=== PATIENT | female | born 1945 | race Caucasian/White ===

== ENCOUNTER → 2020-03-10 10:54 | Outpatient (BNVA) | payer MEDICARE, OTHER, SELFPAY | PROVIDERS: PCP Internal Medicine; Visit Provider Hospitalist | DX: J45.909 Unspecified asthma, uncomplicated (principal); G47.33 Obstructive sleep apnea (adult) (pediatric); R05 Cough; Z99.89 Dependence on other enabling machines and devices | CPT/HCPCS: 99214 ==

== ENCOUNTER → 2020-09-04 11:10 | Outpatient (BNVA) | payer MEDICARE, OTHER, SELFPAY | PROVIDERS: PCP Internal Medicine; Visit Provider Hospitalist | DX: G47.33 Obstructive sleep apnea (adult) (pediatric) (principal); R05 Cough; J45.40 Moderate persistent asthma, uncomplicated; Z99.89 Dependence on other enabling machines and devices | CPT/HCPCS: 99212 ==

== ENCOUNTER → 2021-08-03 11:17 | Outpatient (BNVA) | payer MEDICARE, OTHER, SELFPAY | PROVIDERS: PCP Nurse Practitioner Gerontology; Visit Provider Hospitalist | DX: G47.33 Obstructive sleep apnea (adult) (pediatric) (principal); J45.40 Moderate persistent asthma, uncomplicated; R05.9 Cough, unspecified; Z99.89 Dependence on other enabling machines and devices | CPT/HCPCS: 99212 ==

== ENCOUNTER 2021-09-01 09:42 | Outpatient (REF) | payer MEDICARE, OTHER, SELFPAY ==
--- NOTE | 2021-09-01 | PFT_ITS ---
FLOWS: FEV1 81% of predicted at 1.69 L. FVC 71% of predicted at 1.99 L. FEV1 to FVC ratio of 0.85. No bronchodilator response. LUNG VOLUMES: Total lung capacity 66% of predicted at 3.37 L. Residual volume 55% of predicted at 1.29 L. Slow vital capacity 76% of predicted at 2.09 L. Expiratory reserve volume 30% of predicted at 0.18 L. Diffusion capacity is mildly decreased, diffusion capacity corrects to normal after adjustment for alveolar ventilation. IMPRESSION: Mild restrictive ventilatory defect with no bronchodilator response. Decreased expiratory reserve volume suggests extrathoracic restriction, likely secondary to abdominal obesity. Hipolito Mckeon MD AP/MODL / [id number]
== END 2021-09-01 09:43 | disposition home or self-care (01) ==
LOC: HO.RESP 09:42
PROVIDERS: PCP Nurse Practitioner Gerontology; Visit Provider Hospitalist
DX: R06.00 Dyspnea, unspecified (principal); R05.9 Cough, unspecified; J45.40 Moderate persistent asthma, uncomplicated; J98.4 Other disorders of lung; G47.33 Obstructive sleep apnea (adult) (pediatric); Z99.89 Dependence on other enabling machines and devices
CPT/HCPCS: 94060; 94727; 94729; 99212

== ENCOUNTER → 2021-12-02 11:08 | Outpatient (BNVA) | payer MEDICARE, OTHER, SELFPAY | PROVIDERS: PCP Nurse Practitioner Gerontology; Visit Provider Hospitalist | DX: J45.40 Moderate persistent asthma, uncomplicated (principal); J98.4 Other disorders of lung; G47.33 Obstructive sleep apnea (adult) (pediatric); Z99.89 Dependence on other enabling machines and devices; Z79.899 Other long term (current) drug therapy | CPT/HCPCS: 99212 ==

== ENCOUNTER → 2022-03-03 10:44 | Outpatient (BNVA) | payer MEDICARE, OTHER, SELFPAY | PROVIDERS: PCP Nurse Practitioner Gerontology; Visit Provider Hospitalist | DX: G47.33 Obstructive sleep apnea (adult) (pediatric) (principal); J45.40 Moderate persistent asthma, uncomplicated; J98.4 Other disorders of lung; R01.1 Cardiac murmur, unspecified; Z99.89 Dependence on other enabling machines and devices | CPT/HCPCS: 99212 ==

== ENCOUNTER → 2022-09-15 10:57 | Outpatient (BNVA) | payer MEDICARE, OTHER, SELFPAY | PROVIDERS: PCP Nurse Practitioner Gerontology; Visit Provider Hospitalist | DX: J45.41 Moderate persistent asthma with (acute) exacerbation (principal); J98.4 Other disorders of lung; R05.9 Cough, unspecified; R06.00 Dyspnea, unspecified; G47.33 Obstructive sleep apnea (adult) (pediatric); Z99.89 Dependence on other enabling machines and devices | CPT/HCPCS: 99212 ==

== ENCOUNTER 2022-12-22 11:13 | Outpatient (AMB) | payer MEDICARE, OTHER, SELFPAY ==
--- NOTE | 2022-12-22 11:14 | MHC.OFFVIS ---
Intake Vital Signs 12/22/22 11:16 Height 5 ft 4 in Weight 250 lb BMI 42.9 Pulse 89 Pulse Source Pulse Oximeter Pulse Oximetry (%) 92 Oxygen Delivery Method Room Air Intake Visit Reasons: COPD Transaction Manager Required: No Allergies doxycycline [DOXYCYCLINE] Allergy (Intermediate, Verified 12/22/22 11:17) HIVES Sulfa (Sulfonamide Antibiotics) [SULFA (SULFONAMIDE ANTIBIOTICS)] Allergy (Intermediate, Verified 12/22/22 11:17) HIVES nut - unspecified Allergy (Mild, Verified 12/22/22 11:17) Hives walnuts Allergy (Severe, Uncoded 12/22/22 11:17) Itching HPI HPI Comments History of Present Illness Details The patient is a 77-year-old woman with a known history of asthma in addition to chronic cough and obstructive sleep apnea. Her cough overall so little better. Usually worse in the morning and also at nighttime. [id number] severity. Her respiratory medications have been helping. She had been off her Advair for a month or 2. allergy back on the Advair her cough has improved. She denies having to be on prednisone on any exacerbations of the asthma. In regards to her CPAP the CPAP therapy continues to be affecting beneficial. She does use it for more than 4 hours a night. She is grieving the loss of her good friend. 09/05/2020 the patient is here for pulmonary follow-up visit. Overall the patient has been doing well. Her cough seems to be a lot better. She did have some wheezing a few days ago but now is resolved. She has been using her maintenance therapy as prescribed. She has not had to use her rescue inhaler except for a few days ago. Typically less than 2 times a week. Her CPAP therapy has been affecting beneficial. She is struggling with her mask because of the nasal bridge irritation. I did have a nasal DreamWear mask that out provided to her to see if she can try and see if there is any improvement in her CPAP tolerance. Otherwise the CPAP therapy has been affecting beneficial. And she does uses CPAP more than 4 hours a night. Her cough is overall better. Still intermittent but not as barky. 08/03/2021 the patient is here for a pulmonary follow-up visit. Apparently she has been having difficulties with her CPAP. She 1st noticed that the pressures were not high enough and she was having difficulties tolerating it. Then started flashing a message saying that he was malfunctioning. The patient has continued to use is and she has severe sleep apnea. She had some try to call the [employer] company but has not been able to be successful. I did call the [employer] company spoke to them directly. I did send the information over for the patient and she will have to bring machine in for a machine checked. If the machine is no longer viable then up some replacement CPAP will be warranted. In the meantime I was able to download data and get web access. I was able to increase her pressure is to 8-16. hopeful she can use the machine. in addition to that she did start developing a cough and chest congestion. Her cough is moderate severity. She was given antibiotics for another genital infection and apparently did help her cough. Seems that she has a lot of sinus congestion still has some drainage specially from the right nostril. She was diagnosed with bladder cancer and was she is getting antibiotics her chemotherapy intra bladder was discontinued. Therefore even though the patient still has some sinus congestion will have to hold off on antibiotics in order for her to tolerate her chemotherapy. In the meantime I will send her nasal sprays in therapy to try to improve her nasal congestion and sinusitis issue. The patient did try the Tessalon Perles but there were not helpful. She recently started Mucinex with good response. She continues with respiratory therapy. Denies any wheezing or chest tightness. Her lungs sound good and I do not believe that the chest congestion and cough is due to a lower respiratory process at this time. However, if she is no better she can always get an x-ray to make sure. 09/01/2021 the patient is here for a pulmonary follow-up visit. She did undergo pulmonary function studies prior to this visit. Mainly she was having worsening dyspnea on exertion. Moderate severity. She has been losing weight and this has been helping her breathing. Her pulmonary function studies demonstrated a moderate restrictive process. She is concerned about the possibility of pulmonary fibrosis because of the family history. I did reassure her that previous imaging studies that we did review in the office demonstrated no evidence of interstitial lung disease. She had a CT scan of the abdomen from 2020 that demonstrated just minimal atelectatic changes. And also chest x-ray from 2020 that appeared to show no evidence of any reticular nodular opacities. That being said will have her repeat the x-ray now in order to make sure that there is no interval worsening process. Explained to her that it is likely mainly due to her body habitus. The patient is able to walk and she is going to work on deep breathing exercises. She did finish the chemotherapy for her bladder and will be undergoing a cystoscopy soon to assess the area. Overall she is doing good on her respiratory therapy. The patient is motivated she is going to try to stay active over the spring and summer months. Otherwise the patient is without any other complaints. in addition, the patient does use CPAP. The CPAP therapy continues to be affecting beneficial. She does uses CPAP every night more than 4 hours. However, the therapy does not appear to be working in the machine did signal that it was not working appropriately. She did take it to her [employer] where they evaluated her and supposedly were going to call her about 5-6 weeks ago. She has not heard anything. I did reach out to the [employer] company myself and did request a day reach out to her and also myself. At this point if the machine is wwarning that it is no longer working appropriately I will request a replacement machine for her at this time. 12/02/2021 the patient is here for a pulmonary follow-up visit. Overall the patient has been doing fairly well from a respiratory status. She continues with her Advair. She has not had to use her rescue inhaler. overall she is doing well. She is staying safe from COVID. She has been fully vaccinated. The patient did get her new CPAP. The therapy has been affecting beneficial. She does use it more than 4 hours a night. However, she still trying to get used to the new machine. She feels like the water runs out in the middle the night in addition to that she feels is too warm. We did download the machine and appears that her temperature set up too high at 76 F. the humidity was also manual at 6 which is also too high. I switched her admitted to auto in a decrease in temperature to 68. I hope that the changes are effective for her. I also started the ramp at 4 cm with a minimum pressure of 6 and a maximum pressure of 14. if the patient has any difficulties in the next week or 2 she will call the office in order to readjust the machine. She has been having issues with her current mask. She does wear nasal mask. However she had a biopsy on her forehead and her straps go on her forehead. Therefore, I do believe that a different mask is required in order not to irritate that surgical biopsy site. I did request an N20 small to be provided by her [employer] company, [employer]. Otherwise patient is without any other complaints 03/03/2022 the patient is here for pulmonary follow-up visit. Overall she is doing about the same. Continues to use her respiratory medications as prescribed. She is doing better overall. The partly uses her short-acting beta agonist less than twice a week. In the meantime the patient did get a new CPAP. The CPAP therapy has been affecting beneficial. She does use it for more than 4 hours a night. She never got a new mask. I did send a prescription again for a new N20 small mask. In the meantime I did have a similar 1 for her to use. On examination the patient did have a very mild systolic get some murmur best heard at the left base. 09/15/2022 the patient is here for pulmonary follow-up visit. She is having worsening dyspnea symptoms. Moderate severity. Mainly with activity. She is very stressed at this time as well. Unfortunately she has a 6 sister in the hospital with a cardiac condition requiring surgery. She has her brother who recently had a total knee replacement staying at her home and actively smoking inside her house in addition to that she has another sister down [facility] that has worsening pulmonary fibrosis and is not a candidate for lung transplant. Therefore this is causing significant amount of stress. She is using her inhalers. She feels that the smoking in the house has really affected her breathing sometimes it has her off. On exam she does not have any significant amount of wheezing although she does have some post exhalation coughing suggesting that she has some small airways disease. In addition to this we did go for brief walking oximetry because the heart rate had been elevated and then she did increase to about 120 beats per minute. She also has some lower extremity edema. Therefore volume status may be an issue I am concerned about heart. I did have her take an order for an EKG and also a chest x-ray that she can do on her own time. Will try course of prednisone. I did advise her though that if she does develop worsening shortness of breath chest pains or worsening palpitations the patient should be seen at an ER for further evaluation of any potential cardiac etiologies. 12/22/2022 the patient is here for a pulmonary follow-up visit. The patient had been evaluated by primary care doctor. She had significant dyspnea symptoms with respiratory distress. Apparently she was sent over to the [facility] ER via ambulance because that the respiratory distress. She was briefly admitted to the hospital treated for a COPD exacerbation. We did review her last PFTs done back in 2020 demonstrating no evidence of any obstructive ventilatory defect. Will go ahead and repeat her pulmonary function studies at this time with hopes of getting her into pulmonary rehabilitation which will be very helpful. As far as imaging studies she did have she had 2 chest x-rays which I personally reviewed demonstrating no acute disease. She does have limited x-rays because of her body habitus. She did have CT scan of the abdomen and pelvis and the lung windows the lung bases appear to be okay except for some atelectasis. The patient does have an MRI pending for her history of bladder cancer and will have additional testing as well for her memory issues. At this time will hold off on additional imaging studies. From a respiratory status the patient is adequately being treated with her respiratory medications. The patient also has been using CPAP. CPAP therapy continues to be affecting beneficial. She does use it every night. Will need to download her CPAP machine to make sure that is providing adequate therapy however. The patient has been talking about some memory loss issues. [facility], [facility] Medical History (Updated 09/15/22 @ 22:15 by Chan Oconnor MD) Asthma Chronic restrictive lung disease Cough Dyspnea ARIAN on CPAP Systolic murmur Social History (Updated 08/03/21 @ 11:33 by MARZENA Mar) Patient Tobacco Use Status: Former Tobacco user Tobacco use type: Cigarette Years Smoked: 10+ Years Review of Systems Const Denies night sweats and Reports weight loss ENT Denies change in voice, Denies lip swelling, Denies mouth pain, Reports nasal congestion, Reports nasal discharge, Denies nasal obstruction, Denies sinus pain, Denies sinus pressure and Denies tongue swelling Card Denies chest pain, Reports dyspnea and Reports dyspnea on exertion Resp Denies change in phlegm color, Denies chest congestion, Reports cough, Reports dyspnea and Reports dyspnea on exertion GI Denies abdominal pain Musc Denies no additional complaints Skin/Breast Reports as per HPI and Reports lesions Neuro Denies Neuro-related abnormal movements and Reports memory loss Psych Reports anxiety and Reports memory loss Ronald/Lymph Denies easy bleeding and Denies lymphadenopathy Aller/Immun Denies lip swelling and Denies tongue swelling Physical Exam Vital Signs: Last Vital Signs Pulse 89 12/22/22 11:16 Pulse Ox 92 12/22/22 11:16 Oxygen Delivery Method Room Air 12/22/22 11:16 BMI result Body Mass Index 42.9 Const General: alert HEENT Head: Yes laceration (surgical site with some exudate on the forehead) Neck Neck: Yes normal visual inspection, Yes full ROM and Yes no lymphadenopathy Chest Chest palpation & inspection: normal inspection of the chest Resp Effort & Inspection: Actively coughing Auscultation: no rales, no rhonchi, no wheezes and diminished lung sounds Cardio Rate: regular rate Rhythm: regular rhythm Heart sounds: S1 normal heart sound present, S2 normal heart sound present and Murmur heart sound present systolic mid, I/, at the base and at the left sternal border GI Palpation (GI): Soft to palpation and nontender Auscultation: normal bowel sounds Skin General skin exam: rashes and/or lesions noted Extrem General: No clubbing, No cyanosis and Yes edema Assessment & Plan Assessment & Plan (1) ARIAN on CPAP: Code(s): G47.33 - Obstructive sleep apnea (adult) (pediatric); Z99.89 - Dependence on other enabling machines and devices (2) Cough: Comment: likely related to her cough variant asthma Code(s): R05 - Cough (3) Asthma: Code(s): J45.909 - Unspecified asthma, uncomplicated Qualifiers: Asthma severity: moderate Asthma persistence: persistent Asthma complication type: with acute exacerbation Qualified Code(s): J45.41 - Moderate persistent asthma with (acute) exacerbation (4) Chronic restrictive lung disease: Code(s): J98.4 - Other disorders of lung (5) Dyspnea: Code(s): R06.00 - Dyspnea, unspecified Plan Continue Advair ETHEL as needed continue APAP ramp 4, 6-14 new mask N20 small JL Trazodone for sleep continue Fluticasone nasal spray continue astelin Nasal spray PFTs Pulmonary rehab, prefers [facility] Follow-up in 3-4 months Orders: Orders PFT pulmonary function test Today J98.4 - Other disorders of lung Pulmonary Rehab Today J98.4 - Other disorders of lung Medications: New benzonatate 200 mg PO BID PRN 60 caps 0RF cough 30 days Coding Level of Care Code Est Pt Level 4 (77975) Diagnoses ARIAN on CPAP G47.33; Z99.89 Cough R05 Asthma J45.41 Asthma severity: moderate Asthma persistence: persistent Asthma complication type: with acute exacerbation Chronic restrictive lung disease J98.4 Dyspnea R06.00 Time Spent (min) 19
[2022-12-22 11:16] VITALS: PULSE 89; O2SAT 92; BMI 42.9
== END 2022-12-22 11:53 | disposition home or self-care (01) ==
PROVIDERS: PCP Nurse Practitioner Gerontology; Visit Provider Hospitalist
DX: G47.33 Obstructive sleep apnea (adult) (pediatric) (principal); Z99.89 Dependence on other enabling machines and devices; R05.9 Cough, unspecified; J45.41 Moderate persistent asthma with (acute) exacerbation; J98.4 Other disorders of lung; R06.00 Dyspnea, unspecified
CPT/HCPCS: 99214

== ENCOUNTER → 2022-12-22 11:13 | Outpatient (BNVA) | payer MEDICARE, OTHER, SELFPAY | PROVIDERS: Visit Provider Hospitalist | DX: J98.4 Other disorders of lung (principal); J45.41 Moderate persistent asthma with (acute) exacerbation; R06.00 Dyspnea, unspecified; R05.3 Chronic cough; G47.33 Obstructive sleep apnea (adult) (pediatric); Z99.89 Dependence on other enabling machines and devices | CPT/HCPCS: 99212 ==

== ENCOUNTER 2023-01-19 10:19 | Outpatient (REF) | payer MEDICARE, OTHER, SELFPAY ==
--- NOTE | 2023-01-19 12:08 | PFT_ITS ---
FLOWS: 1. FEV1 77% of predicted at 1.58 L. 2. FVC 72% of predicted at 1.97 L. 3. FEV1 to FVC ratio of 0.80. 4. No bronchodilator response. LUNG VOLUMES: 1. Total lung capacity 64% of predicted at 3.26 L. 2. Residual volume 58% of predicted at 1.37 L. 3. Slow vital capacity 69% of predicted at 1.89 L. 4. Expiratory reserve volume 33% of predicted at 0.19 L. 5. Diffusion capacity is mildly decreased, diffusion capacity corrects to normal after adjustment for alveolar ventilation. IMPRESSION: Moderate restrictive ventilatory defect with no bronchodilator response. Decreased expiratory reserve volume suggests extrathoracic restriction, likely secondary to abdominal obesity. Decreased diffusion capacity together with restrictive ventilatory defect suggests underlying pulmonary parenchymal disease. Clinical correlation is advised. MD KINJAL Champagne/MODL / [id number]
== END 2023-01-19 10:20 | disposition home or self-care (01) ==
LOC: HO.RESP 10:19
PROVIDERS: PCP Nurse Practitioner Gerontology; Visit Provider Hospitalist
DX: J98.4 Other disorders of lung (principal)
CPT/HCPCS: 94060; 94727; 94729

== ENCOUNTER → 2023-01-19 12:08 | Outpatient (BNV) | payer MEDICARE, OTHER, SELFPAY | PROVIDERS: PCP Nurse Practitioner Gerontology; Visit Provider Internal Medicine Pulmonary Disease | DX: R06.09 Other forms of dyspnea (principal) | CPT/HCPCS: 94060; 94727; 94729 ==

== ENCOUNTER 2023-04-27 09:23 | Outpatient (AMB) | payer MEDICARE, OTHER, SELFPAY ==
[2023-04-27 09:28] VITALS: PULSE 89; O2SAT 94; BMI 43.8
--- NOTE | 2023-04-27 09:28 | A.OFFVIS_ITS ---
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 Her cough overall so little better. Usually worse in the morning and also at nighttime. Cxdy-[id number] severity. Her respiratory medications have been helping. She had been off her Advair for a month or 2. allergy back on the Advair her cough has improved. She denies having to be on prednisone on any exacerbations of the asthma. In regards to her CPAP the CPAP therapy continues to be affecting beneficial. She does use it for more than 4 hours a night. She is grieving the loss of her good friend. 09/15/2022 the patient is here for pulmon eva follow-up visit. She is having worsening dyspnea symptoms. Moderate severity. Mainly with activity. She is very stressed at this time as well. Unfortunately she has a 6 sister in the hospital with a cardiac condition requiring surgery. She has her brother who recently had a total knee replacement staying at her home and actively smoking inside her house in addition to that she has another sister down [facility] that has worsening pulmonary fibrosis and is not a candidate for lung transplant. Therefore this is causing significant amount of stress. She is using her inhalers. She feels that the smoking in the house has really affected her breathing sometimes it has her off. On exam she does not have any significant amount of wheezing although she does have some post exhalation coughing suggesting that she has some small airways disease. In addition to this we did go for brief walking oximetry because the heart rate had been elevated and then she did increase to about 120 beats per minute. She also has some lower extremity edema. Therefore volume status may be an issue I am concerned about heart. I did have her take an order for an EKG and also a chest x-ray that she can do on her own time. Will try course of prednisone. I did advise her though that if she does develop worsening shortness of breath chest pains or worsening palpitations the patient should be seen at an ER for further evaluation of any potential cardiac etiologies. 12/22/2022 the patient is here for a pulmonary follow-up visit. The patient had been evaluated by primary care doctor. She had significant dyspnea symptoms with respiratory distress. Apparently she was sent over to the [facility] ER via ambulance because that the respiratory distress. She was briefly admitted to the hospital treated for a COPD exacerbation. We did review her last PFTs done back in 2020 demonstrating no evidence of any obstructive ventilatory defect. Will go ahead and repeat her pulmonary function studies at this time with hopes of getting her into pulmonary rehabilitation which will be very helpful. As far as imaging studies she did have she had 2 chest x-rays which I personally reviewed demonstrating no acute disease. She does have limited x-rays because of her body habitus. She did have CT scan of the abdomen and pelvis and the lung windows the lung bases appear to be okay except for some atelectasis. The patient does have an MRI pending for her history of bladder cancer and will have additional testing as well for her memory issues. At this time will hold off on additional imaging studies. From a respiratory status the patient is adequately being treated with her respiratory medications. The patient also has been using CPAP. CPAP therapy continues to be affecting be neficial. She does use it every night. Will need to download her CPAP machine to make sure that is providing adequate therapy however. The patient has been talking about some memory loss issues. 04/27/2023 the patient is here for a pulm onary follow-up visit. Overall the patient has been feeling well. She denies any worsening shortness of breath denies any worsening cough. Unfortunately though she has not been able to get her Advair. Likely back order. In addition to that coming May 2023 is no longer going to be covered. I did send Symbicort in the meantime because is covered at this time although it probably will be covered for 2023 will have to switch over to Dulera or something like. She does continue to use her CPAP. CPAP therapy continues to be affecting beneficial. She does try to use it every night for more than 4 hours a night. Otherwise patient is without any other complaints. FOR[facility]LY [facility] Medical History (Updated 09/15/22 @ 22:15 by Chan Oconnor MD) Dyspnea Systolic murmur Chronic restrictive lung disease ARIAN on CPAP Cough Asthma Social History (Updated 08/03/21 @ 11:33 by Hayley Valadez Trey) Patient Tobacco Use Status: Former Tobacco user Tobacco use type: Cigarette Years Smoked: 10+ Years Review of Systems Const Denies night sweats and Reports weight loss ENT Denies change in voice, Denies lip swelling, Denies mouth pain, Reports nasal congestion, Reports nasal discharge, Denies nasal obstruction, Denies sinus pain, Denies sinus pressure and Denies tongue swelling Card Denies chest pain and Reports dyspnea on exertion Resp Denies change in phlegm color, Denies chest congestion, Reports cough and Reports dyspnea on exertion GI Denies abdominal pain Musc Denies no additional complaints Skin/Breast Reports as per HPI and Reports lesions Neuro Denies Neuro-related abnormal movements and Reports memory loss Psych Reports anxiety and Reports memory loss Ronald/Lymph Denies easy bleeding and Denies lymphadenopathy Aller/Immun Denies lip swelling and Denies tongue swelling Physical Exam Vital Signs: Last Vital Signs Pulse 89 04/27/23 09:28 Pulse Ox 94 04/27/23 09:28 Oxygen Delivery Method Room Air 04/27/23 09:28 BMI result Body Mass Index 43.8 Const General: alert HEENT Head: Yes laceration (surgical site with some exudate on the forehead) Neck Neck: Yes normal visual inspection, Yes full ROM and Yes no lymphadenopathy Chest Chest palpation & inspection: normal inspection of the chest Resp Effort & Inspection: Actively coughing Auscultation: no rales, no rhonchi, no wheezes and diminished lung sounds Cardio Rate: regular rate Rhythm: regular rhythm Heart sounds: S1 normal heart sound present, S2 normal heart sound present and Murmur heart sound present systolic mid, I/, at the base and at the left sternal border GI Palpation (GI): Soft to palpation and nontender Auscultation: normal bowel sounds Skin General skin exam: rashes and/or lesions noted Extrem General: No clubbing, No cyanosis and Yes edema Assessment & Plan Assessment & Plan (1) ARIAN on CPAP: Code(s): G47.33 - Obstructive sleep apnea (adult) (pediatric); Z99.89 - Dependence on other enabling machines and devices (2) Cough: Comment: likely related to her cough variant asthma Code(s): R05 - Cough (3) Asthma: Code(s): J45.909 - Unspecified asthma, uncomplicated Qualifiers: Asthma complication type: with acute exacerbation Asthma persistence: persistent Asthma severity: moderate Qualified Code(s): J45.41 - Moderate persistent asthma with (acute) exacerbation (4) Chronic restrictive lung disease: Code(s): J98.4 - Other disorders of lung (5) Dyspnea: Code(s): R06.00 - Dyspnea, unspecified Plan stop Advair start Symbiocrt ETHEL as needed continue APAP ramp 4, 6-14 new mask N20 small JL Trazodone for sleep continue Fluticasone nasal spray continue astelin Nasal spray Pulmonary rehab Follow-up in 6-8 months Medications: New budesonide-formoterol 160-4.5 mcg/actuation (Symbicort) 2 puffs inhalation BID 30 days 10.2 grams 11RF J44.89 - Other specified chronic obstructive pulmonary disease Coding Level of Care Code Est Pt Level 4 (59250) Diagnoses ARIAN on CPAP G47.33; Z99.89 Cough R05 Moderate persistent asthma with acute exacerbation J45.41 Asthma complication type: with acute exacerbation Asthma persistence: persistent Asthma severity: moderate Chronic restrictive lung disease J98.4 Dyspnea R06.00 Time Spent (min) 16
== END 2023-04-27 09:53 | disposition home or self-care (01) ==
PROVIDERS: PCP Nurse Practitioner Gerontology; Visit Provider Hospitalist
DX: G47.33 Obstructive sleep apnea (adult) (pediatric) (principal); Z99.89 Dependence on other enabling machines and devices; R05.9 Cough, unspecified; J45.41 Moderate persistent asthma with (acute) exacerbation; J98.4 Other disorders of lung; R06.00 Dyspnea, unspecified
CPT/HCPCS: 99214

== ENCOUNTER → 2023-04-27 09:23 | Outpatient (BNVA) | payer MEDICARE, OTHER, SELFPAY | PROVIDERS: PCP Nurse Practitioner Gerontology; Visit Provider Hospitalist | DX: J45.41 Moderate persistent asthma with (acute) exacerbation (principal); R05.9 Cough, unspecified; J98.4 Other disorders of lung; R06.00 Dyspnea, unspecified; G47.33 Obstructive sleep apnea (adult) (pediatric); Z99.89 Dependence on other enabling machines and devices | CPT/HCPCS: 99212 ==

== ENCOUNTER 2023-11-04 10:30 | Outpatient (AMB) | payer MEDICARE, OTHER, SELFPAY ==
[2023-11-04 10:34] VITALS: PULSE 89; O2SAT 93; BMI 40.3
--- NOTE | 2023-11-04 10:34 | MHC.OFFVIS ---
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 Her cough overall so little better. Usually worse in the morning and also at nighttime. Mcwa-dh-osfdwqco severity. Her respiratory medications have been helping. She had been off her Advair for a month or 2. allergy back on the Advair her cough has improved. She denies having to be on prednisone on any exacerbations of the asthma. In regards to her CPAP the CPAP therapy continues to be affecting beneficial. She does use it for more than 4 hours a night. She is grieving the loss of her good friend. 09/15/2022 the patient is here for pulmonary follow-up visit. She is having worsening dyspnea symptoms. Moderate severity. Mainly with activity. She is very stressed at this time as well. Unfortunately she has a 6 sister in the hospital with a cardiac condition requiring surgery. She has her brother who recently had a total knee replacement staying at her home and actively smoking inside her house in addition to that she has another sister down [facility] that has worsening pulmonary fibrosis and is not a candidate for lung transplant. Therefore this is causing significant amount of stress. She is using her inhalers. She feels that the smoking in the house has really affected her breathing sometimes it has her off. On exam she does not have any significant amount of wheezing although she does have some post exhalation coughing suggesting that she has some small airways disease. In addition to this we did go for brief walking oximetry because the heart rate had been elevated and then she did increase to about 120 beats per minute. She also has some lower extremity edema. Therefore volume status may be an issue I am concerned about heart. I did have her take an order for an EKG and also a chest x-ray that she can do on her own time. Will try course of prednisone. I did advise her though that if she does develop worsening shortness of breath chest pains or worsening palpitations the patient should be seen at an ER for further evaluation of any potential cardiac etiologies. 12/22/2022 the patient is here for a pulmonary follow-up visit. The patient had been evaluated by primary care doctor. She had significant dyspnea symptoms with respiratory distress. Apparently she was sent over to the [facility] ER via ambulance because that the respiratory distress. She was briefly admitted to the hospital treated for a COPD exacerbation. We did review her last PFTs done back in 2020 demonstrating no evidence of any obstructive ventilatory defect. Will go ahead and repeat her pulmonary function studies at this time with hopes of getting her into pulmonary rehabilitation which will be very helpful. As far as imaging studies she did have she had 2 chest x-rays which I personally reviewed demonstrating no acute disease. She does have limited x-rays because of her body habitus. She did have CT scan of the abdomen and pelvis and the lung windows the lung bases appear to be okay except for some atelectasis. The patient does have an MRI pending for her history of bladder cancer and will have additional testing as well for her memory issues. At this time will hold off on additional imaging studies. From a respiratory status the patient is adequately being treated with her respiratory medications. The patient also has been using CPAP. CPAP therapy continues to be affecting beneficial. She does use it every night. Will need to download her CPAP machine to make sure that is providing adequate therapy however. The patient has been talking about some memory loss issues. 04/27/2023 the patient is here for a pulmonary follow-up visit. Overall the patient has been feeling well. She denies any worsening shortness of breath denies any worsening cough. Unfortunately though she has not been able to get her Advair. Likely back order. In addition to that coming May 2023 is no longer going to be covered. I did send Symbicort in the meantime because is covered at this time although it probably will be covered for 2023 will have to switch over to Dulera or something like. She does continue to use her CPAP. CPAP therapy continues to be affecting beneficial. She does try to use it every night for more than 4 hours a night. Otherwise patient is without any other complaints. 11/04/2023 the patient is here for a pulmonary follow-up visit. Overall the patient has been doing well from a asthma standpoint. She does use her inhalers as prescribed. She has not had to use any prednisone and has not required her rescue inhaler. She still gets shortness of breath with activity [id number]-se-xuwuezsy with severity. She does have multifactorial reasons for that. No recent imaging studies to review. the patient has been using her CPAP. The CPAP therapy has been affecting beneficial. She uses it more than 4 hours a night. She has a comfortable mask. Will request supplies at this time. FORMERLY [facility] Medical History (Updated 11/04/23 @ 10:44 by Chan Oconnor MD) Dyspnea Systolic murmur Chronic restrictive lung disease ARIAN on CPAP Cough Asthma Social History (Updated 08/03/21 @ 11:33 by Hayley Valadez Trey) Patient Tobacco Use Status: Former Tobacco user Tobacco use type: Cigarette Years Smoked: 10+ Years Review of Systems Const Denies night sweats and Reports weight loss ENT Denies change in voice, Denies lip swelling, Denies mouth pain, Reports nasal congestion, Reports nasal discharge, Denies nasal obstruction, Denies sinus pain, Denies sinus pressure and Denies tongue swelling Card Denies chest pain and Reports dyspnea on exertion Resp Denies change in phlegm color, Denies chest congestion, Reports cough and Reports dyspnea on exertion GI Denies abdominal pain Musc Denies no additional complaints Skin/Breast Reports as per HPI and Reports lesions Neuro Denies Neuro-related abnormal movements and Reports memory loss Psych Reports anxiety and Reports memory loss Ronald/Lymph Denies easy bleeding and Denies lymphadenopathy Aller/Immun Denies lip swelling and Denies tongue swelling Physical Exam Vital Signs: Last Vital Signs Pulse 89 11/04/23 10:34 Pulse Ox 93 11/04/23 10:34 Oxygen Delivery Method Room Air 11/04/23 10:34 BMI result Body Mass Index 40.3 Const General: alert HEENT Head: Yes laceration (surgical site with some exudate on the forehead) Neck Neck: Yes normal visual inspection, Yes full ROM and Yes no lymphadenopathy Chest Chest palpation & inspection: normal inspection of the chest Resp Auscultation: no rales, no rhonchi, no wheezes and diminished lung sounds Cardio Rate: regular rate Rhythm: regular rhythm Heart sounds: S1 normal heart sound present, S2 normal heart sound present and Murmur heart sound present systolic mid, I/, at the base and at the left sternal border GI Palpation (GI): Soft to palpation and nontender Auscultation: normal bowel sounds Skin General skin exam: rashes and/or lesions noted Extrem General: No clubbing, No cyanosis and Yes edema Assessment & Plan Assessment & Plan (1) ARIAN on CPAP: Code(s): G47.33 - Obstructive sleep apnea (adult) (pediatric); Z99.89 - Dependence on other enabling machines and devices Category: Medical (2) Cough: Comment: likely related to her cough variant asthma Code(s): R05 - Cough Category: Medical Qualifiers: Cough type: chronic Qualified Code(s): R05.3 - Chronic cough (3) Asthma: Code(s): J45.909 - Unspecified asthma, uncomplicated Category: Medical Qualifiers: Asthma complication type: with acute exacerbation Asthma persistence: persistent Asthma severity: moderate Qualified Code(s): J45.41 - Moderate persistent asthma with (acute) exacerbation (4) Chronic restrictive lung disease: Code(s): J98.4 - Other disorders of lung Category: Medical (5) Dyspnea: Code(s): R06.00 - Dyspnea, unspecified Category: Medical Qualifiers: Dyspnea type: dyspnea on exertion Qualified Code(s): R06.09 - Other forms of dyspnea Plan start Breztri ETHEL as needed continue APAP ramp 4, 6-14 new mask N20 small JL Trazodone for sleep continue Fluticasone nasal spray continue astelin Nasal spray Pulmonary rehab Follow-up in 6-8 months Medications: New mjwyligfsf-dgocskfv-dibytoeaie 160-9-4.8 mcg/actuation (Breztri Aerosphere) 2 inhalations inhalation BID 30 days 10.7 grams 11RF euruvhbygj-fxjzgevd-npohulgryf 160-9-4.8 mcg/actuation (Breztri Aerosphere) 2 inhalations inhalation BID 10.7 grams 11RF 30 days Coding Level of Care Code Est Pt Level 4 (36421) Diagnoses ARIAN on CPAP G47.33; Z99.89 Chronic cough R05.3 Cough type: chronic Moderate persistent asthma with acute exacerbation J45.41 Asthma complication type: with acute exacerbation Asthma persistence: persistent Asthma severity: moderate Chronic restrictive lung disease J98.4 Dyspnea on exertion R06.09 Dyspnea type: dyspnea on exertion Time Spent (min) 16
== END 2023-11-04 10:56 | disposition home or self-care (01) ==
PROVIDERS: PCP Nurse Practitioner Gerontology; Visit Provider Hospitalist
DX: G47.33 Obstructive sleep apnea (adult) (pediatric) (principal); Z99.89 Dependence on other enabling machines and devices; R05.3 Chronic cough; J45.41 Moderate persistent asthma with (acute) exacerbation; J98.4 Other disorders of lung; R06.09 Other forms of dyspnea
CPT/HCPCS: 99214

== ENCOUNTER → 2023-11-04 10:30 | Outpatient (BNVA) | payer MEDICARE, OTHER, SELFPAY | PROVIDERS: PCP Nurse Practitioner Gerontology; Visit Provider Hospitalist | DX: J98.4 Other disorders of lung (principal); J45.41 Moderate persistent asthma with (acute) exacerbation; R06.09 Other forms of dyspnea; R05.3 Chronic cough; G47.33 Obstructive sleep apnea (adult) (pediatric); Z99.89 Dependence on other enabling machines and devices | CPT/HCPCS: 99212 ==

== ENCOUNTER 2024-05-28 10:15 | Outpatient (AMB) | payer MEDICARE, OTHER, SELFPAY ==
--- NOTE | 2024-05-28 10:15 | MHC.OFFVIS ---
Vital Signs 05/28/24 10:16 Height 5 ft 4 in Weight 235 lb 14.314 oz BMI 40.5 BP 138/74 Blood Pressure Location Rt brachial Position Sitting Pulse 75 Pulse Source Pulse Oximeter Pulse Oximetry (%) 98 Oxygen Delivery Method Room Air Intake Visit Reasons: COPD Allergies doxycycline [DOXYCYCLINE] Allergy (Intermediate, Verified 05/28/24 10:20) HIVES Sulfa (Sulfonamide Antibiotics) [SULFA (SULFONAMIDE ANTIBIOTICS)] Allergy (Intermediate, Verified 05/28/24 10:20) HIVES nut - unspecified Allergy (Mild, Verified 05/28/24 10:20) Hives walnuts Allergy (Severe, Uncoded 05/28/24 10:20) Itching HPI Comments Details: The patient is a 78-year-old woman with a known history of asthma in addition to chronic cough and obstructive sleep apnea. Her cough overall so little better. Usually worse in the morning and also at nighttime. Niqn-fn-avjpubxq severity. Her respiratory medications have been helping. She had been off her Advair for a month or 2. allergy back on the Advair her cough has improved. She denies having to be on prednisone on any exacerbations of the asthma. In regards to her CPAP the CPAP therapy continues to be affecting beneficial. She does use it for more than 4 hours a night. She is grieving the loss of her good friend. 09/15/2022 the patient is here for pulmonary follow-up visit. She is having worsening dyspnea symptoms. Moderate severity. Mainly with activity. She is very stressed at this time as well. Unfortunately she has a 6 sister in the hospital with a cardiac condition requiring surgery. She has her brother who recently had a total knee replacement staying at her home and actively smoking inside her house in addition to that she has another sister down [facility] that has worsening pulmonary fibrosis and is not a candidate for lung transplant. Therefore this is causing significant amount of stress. She is using her inhalers. She feels that the smoking in the house has really affected her breathing sometimes it has her off. On exam she does not have any significant amount of wheezing although she does have some post exhalation coughing suggesting that she has some small airways disease. In addition to this we did go for brief walking oximetry because the heart rate had been elevated and then she did increase to about 120 beats per minute. She also has some lower extremity edema. Therefore volume status may be an issue I am concerned about heart. I did have her take an order for an EKG and also a chest x-ray that she can do on her own time. Will try course of prednisone. I did advise her though that if she does develop worsening shortness of breath chest pains or worsening palpitations the patient should be seen at an ER for further evaluation of any potential cardiac etiologies. 12/22/2022 the patient is here for a pulmonary follow-up visit. The patient had been evaluated by primary care doctor. She had significant dyspnea symptoms with respiratory distress. Apparently she was sent over to the [facility] ER via ambulance because that the respiratory distress. She was briefly admitted to the hospital treated for a COPD exacerbation. We did review her last PFTs done back in 2020 demonstrating no evidence of any obstructive ventilatory defect. Will go ahead and repeat her pulmonary function studies at this time with hopes of getting her into pulmonary rehabilitation which will be very helpful. As far as imaging studies she did have she had 2 chest x-rays which I personally reviewed demonstrating no acute disease. She does have limited x-rays because of her body habitus. She did have CT scan of the abdomen and pelvis and the lung windows the lung bases appear to be okay except for some atelectasis. The patient does have an MRI pending for her history of bladder cancer and will have additional testing as well for her memory issues. At this time will hold off on additional imaging studies. From a respiratory status the patient is adequately being treated with her respiratory medications. The patient also has been using CPAP. CPAP therapy continues to be affecting beneficial. She does use it every night. Will need to download her CPAP machine to make sure that is providing adequate therapy however. The patient has been talking about some memory loss issues. 04/27/2023 the patient is here for a pulmonary follow-up visit. Overall the patient has been feeling well. She denies any worsening shortness of breath denies any worsening cough. Unfortunately though she has not been able to get her Advair. Likely back order. In addition to that coming May 2023 is no longer going to be covered. I did send Symbicort in the meantime because is covered at this time although it probably will be covered for 2023 will have to switch over to Dulera or something like. She does continue to use her CPAP. CPAP therapy continues to be affecting beneficial. She does try to use it every night for more than 4 hours a night. Otherwise patient is without any other complaints. 11/04/2023 the patient is here for a pulmonary follow-up visit. Overall the patient has been doing well from a asthma standpoint. She does use her inhalers as prescribed. She has not had to use any prednisone and has not required her rescue inhaler. She still gets shortness of breath with activity dmdd-gm-cxrohavy with severity. She does have multifactorial reasons for that. No recent imaging studies to review. the patient has been using her CPAP. The CPAP therapy has been affecting beneficial. She uses it more than 4 hours a night. She has a comfortable mask. Will request supplies at this time. 05/28/2024 the patient is here for a pulmonary follow-up visit. Overall she is doing well from a respiratory status. She has stopped taking the Breo because it was making her cough. When she stopped her cough improved. I did send her a prescription for breast treat with the patient has not started it as of yet. Clinically she is doing well with just with a rescue inhaler. Therefore she will hold onto it and see if she continues to do well and she can always start it if her symptoms are worsening. The patient also has been using her CPAP. CPAP therapy continues to be affecting beneficial. She does use it for all night more than 4 hours. The patient will continue to use it. She was wondering about other alternative devices but she understands that they are not going to be as effective. Therefore she will continue with CPAP at this time. We did review her pulmonary function studies that she had back in 2022 demonstrating no definitive obstruction and a yvrj-us-qyvwansl restrictive ventilatory defects secondary to likely her body habitus. Imaging studies have been stable. The patient needs to work on weight management. In the meantime will go ahead and continue to treat her for her asthma symptoms. These seem to be stable at this time. COUNTS INCLUDE 234 BEDS AT THE [facility] Medical History (Updated 11/04/23 @ 10:44 by Chan Oconnor MD) Dyspnea Systolic murmur Chronic restrictive lung disease ARIAN on CPAP Cough Asthma Social History Patient Tobacco Use Status: Former Tobacco user Tobacco use type: Cigarette Years Smoked: 10+ Years Review of Systems Const Denies night sweats and Reports weight loss ENT Denies change in voice, Denies lip swelling, Denies mouth pain, Reports nasal congestion, Reports nasal discharge, Denies nasal obstruction, Denies sinus pain, Denies sinus pressure and Denies tongue swelling Card Denies chest pain and Reports dyspnea on exertion Resp Denies change in phlegm color, Denies chest congestion, Reports cough and Reports dyspnea on exertion GI Denies abdominal pain Musc Denies no additional complaints Skin/Breast Reports as per HPI and Reports lesions Neuro Denies Neuro-related abnormal movements and Reports memory loss Psych Reports anxiety and Reports memory loss Ronald/Lymph Denies easy bleeding and Denies lymphadenopathy Aller/Immun Denies lip swelling and Denies tongue swelling Physical Exam Vital Signs: Last Vital Signs Pulse 75 05/28/24 10:16 BP 138/74 05/28/24 10:16 Pulse Ox 98 05/28/24 10:16 Oxygen Delivery Method Room Air 05/28/24 10:16 BMI result Body Mass Index 40.5 Const General: alert HEENT Head: Yes laceration (surgical site with some exudate on the forehead) Neck Neck: Yes normal visual inspection, Yes full ROM and Yes no lymphadenopathy Chest Chest palpation & inspection: normal inspection of the chest Resp Auscultation: no rales, no rhonchi, no wheezes and diminished lung sounds Cardio Rate: regular rate Rhythm: regular rhythm Heart sounds: S1 normal heart sound present, S2 normal heart sound present and Murmur heart sound present systolic mid, I/, at the base and at the left sternal border GI Palpation (GI): Soft to palpation and nontender Auscultation: normal bowel sounds Skin General skin exam: rashes and/or lesions noted Extrem General: No clubbing, No cyanosis and Yes edema Assessment & Plan Assessment & Plan (1) ARIAN on CPAP: Code(s): G47.33 - Obstructive sleep apnea (adult) (pediatric); Z99.89 - Dependence on other enabling machines and devices Category: Medical (2) Cough: Comment: likely related to her cough variant asthma Code(s): R05 - Cough Category: Medical Qualifiers: Cough type: chronic Qualified Code(s): R05.3 - Chronic cough (3) Asthma: Code(s): J45.909 - Unspecified asthma, uncomplicated Category: Medical Qualifiers: Asthma complication type: with acute exacerbation Asthma persistence: persistent Asthma severity: moderate Qualified Code(s): J45.41 - Moderate persistent asthma with (acute) exacerbation (4) Chronic restrictive lung disease: Code(s): J98.4 - Other disorders of lung Category: Medical (5) Dyspnea: Code(s): R06.00 - Dyspnea, unspecified Category: Medical Qualifiers: Dyspnea type: dyspnea on exertion Qualified Code(s): R06.09 - Other forms of dyspnea Plan Breztri ETHEL as needed continue APAP ramp 4, 6-14, mask N20 small JL Trazodone for sleep continue Fluticasone nasal spray continue astelin Nasal spray weight management Follow-up in 8-10 months Coding Level of Care Code Est Pt Level 4 (84455) Diagnoses ARIAN on CPAP G47.33; Z99.89 Chronic cough R05.3 Cough type: chronic Moderate persistent asthma with acute exacerbation J45.41 Asthma complication type: with acute exacerbation Asthma persistence: persistent Asthma severity: moderate Chronic restrictive lung disease J98.4 Dyspnea on exertion R06.09 Dyspnea type: dyspnea on exertion Time Spent (min) 16
[2024-05-28 10:16] VITALS: BP 138/74; PULSE 75; O2SAT 98; BMI 40.5
== END 2024-05-28 10:48 | disposition home or self-care (01) ==
PROVIDERS: PCP Nurse Practitioner Gerontology; Visit Provider Hospitalist
DX: G47.33 Obstructive sleep apnea (adult) (pediatric) (principal); Z99.89 Dependence on other enabling machines and devices; R05.3 Chronic cough; J45.41 Moderate persistent asthma with (acute) exacerbation; J98.4 Other disorders of lung; R06.09 Other forms of dyspnea
CPT/HCPCS: 99214

== ENCOUNTER → 2024-05-28 10:15 | Outpatient (BNVA) | payer MEDICARE, OTHER, SELFPAY | PROVIDERS: PCP Nurse Practitioner Gerontology; Visit Provider Hospitalist | DX: J45.41 Moderate persistent asthma with (acute) exacerbation (principal); J98.4 Other disorders of lung; G47.33 Obstructive sleep apnea (adult) (pediatric); R06.09 Other forms of dyspnea; R05.3 Chronic cough; Z99.89 Dependence on other enabling machines and devices | CPT/HCPCS: 99212 ==

== ENCOUNTER 2025-01-23 09:01 | Outpatient (AMB) | payer MEDICARE, OTHER, SELFPAY ==
[2025-01-23 09:06] VITALS: BP 122/58; PULSE 86; O2SAT 94; BMI 36.6
--- NOTE | 2025-01-23 09:06 | MHC.OFFVIS ---
Vital Signs 01/23/25 09:06 Height 5 ft 4 in Weight 213 lb BMI 36.6 BP 122/58 L Blood Pressure Location Rt brachial Position Sitting Pulse 86 Pulse Source Pulse Oximeter Pulse Oximetry (%) 94 Oxygen Delivery Method Room Air Intake Visit Reasons: copd Allergies doxycycline (DOXYCYCLINE) Allergy (Intermediate, Verified 01/23/25 09:09) HIVES Sulfa (Sulfonamide Antibiotics) (SULFA (SULFONAMIDE ANTIBIOTICS)) Allergy (Intermediate, Verified 01/23/25 09:09) HIVES nut - unspecified Allergy (Mild, Verified 01/23/25 09:09) Hives walnuts Allergy (Severe, Uncoded 05/28/24 10:20) Itching HPI Comments Details: The patient is a 79-year-old woman with a known history of asthma in addition to chronic cough and obstructive sleep apnea. Her cough overall so little better. Usually worse in the morning and also at nighttime. Dqah-or-wpcngxtk severity. Her respiratory medications have been helping. She had been off her Advair for a month or 2. allergy back on the Advair her cough has improved. She denies having to be on prednisone on any exacerbations of the asthma. In regards to her CPAP the CPAP therapy continues to be affecting beneficial. She does use it for more than 4 hours a night. She is grieving the loss of her good friend. 09/15/2022 the patient is here for pulmonary follow-up visit. She is having worsening dyspnea symptoms. Moderate severity. Mainly with activity. She is very stressed at this time as well. Unfortunately she has a 6 sister in the hospital with a cardiac condition requiring surgery. She has her brother who recently had a total knee replacement staying at her home and actively smoking inside her house in addition to that she has another sister down [facility] that has worsening pulmonary fibrosis and is not a candidate for lung transplant. Therefore this is causing significant amount of stress. She is using her inhalers. She feels that the smoking in the house has really affected her breathing sometimes it has her off. On exam she does not have any significant amount of wheezing although she does have some post exhalation coughing suggesting that she has some small airways disease. In addition to this we did go for brief walking oximetry because the heart rate had been elevated and then she did increase to about 120 beats per minute. She also has some lower extremity edema. Therefore volume status may be an issue I am concerned about heart. I did have her take an order for an EKG and also a chest x-ray that she can do on her own time. Will try course of prednisone. I did advise her though that if she does develop worsening shortness of breath chest pains or worsening palpitations the patient should be seen at an ER for further evaluation of any potential cardiac etiologies. 12/22/2022 the patient is here for a pulmonary follow-up visit. The patient had been evaluated by primary care doctor. She had significant dyspnea symptoms with respiratory distress. Apparently she was sent over to the [facility] ER via ambulance because that the respiratory distress. She was briefly admitted to the hospital treated for a COPD exacerbation. We did review her last PFTs done back in 2020 demonstrating no evidence of any obstructive ventilatory defect. Will go ahead and repeat her pulmonary function studies at this time with hopes of getting her into pulmonary rehabilitation which will be very helpful. As far as imaging studies she did have she had 2 chest x-rays which I personally reviewed demonstrating no acute disease. She does have limited x-rays because of her body habitus. She did have CT scan of the abdomen and pelvis and the lung windows the lung bases appear to be okay except for some atelectasis. The patient does have an MRI pending for her history of bladder cancer and will have additional testing as well for her memory issues. At this time will hold off on additional imaging studies. From a respiratory status the patient is adequately being treated with her respiratory medications. The patient also has been using CPAP. CPAP therapy continues to be affecting beneficial. She does use it every night. Will need to download her CPAP machine to make sure that is providing adequate therapy however. The patient has been talking about some memory loss issues. 04/27/2023 the patient is here for a pulmonary follow-up visit. Overall the patient has been feeling well. She denies any worsening shortness of breath denies any worsening cough. Unfortunately though she has not been able to get her Advair. Likely back order. In addition to that coming May 2023 is no longer going to be covered. I did send Symbicort in the meantime because is covered at this time although it probably will be covered for 2023 will have to switch over to Dulera or something like. She does continue to use her CPAP. CPAP therapy continues to be affecting beneficial. She does try to use it every night for more than 4 hours a night. Otherwise patient is without any other complaints. 11/04/2023 the patient is here for a pulmonary follow-up visit. Overall the patient has been doing well from a asthma standpoint. She does use her inhalers as prescribed. She has not had to use any prednisone and has not required her rescue inhaler. She still gets shortness of breath with activity jfcz-jf-tokcbjhs with severity. She does have multifactorial reasons for that. No recent imaging studies to review. the patient has been using her CPAP. The CPAP therapy has been affecting beneficial. She uses it more than 4 hours a night. She has a comfortable mask. Will request supplies at this time. 05/28/2024 the patient is here for a pulmonary follow-up visit. Overall she is doing well from a respiratory status. She has stopped taking the Breo because it was making her cough. When she stopped her cough improved. I did send her a prescription for breast treat with the patient has not started it as of yet. Clinically she is doing well with just with a rescue inhaler. Therefore she will hold onto it and see if she continues to do well and she can always start it if her symptoms are worsening. The patient also has been using her CPAP. CPAP therapy continues to be affecting beneficial. She does use it for all night more than 4 hours. The patient will continue to use it. She was wondering about other alternative devices but she understands that they are not going to be as effective. Therefore she will continue with CPAP at this time. We did review her pulmonary function studies that she had back in 2022 demonstrating no definitive obstruction and a nyut-vu-ldxqhuen restrictive ventilatory defects secondary to likely her body habitus. Imaging studies have been stable. The patient needs to work on weight management. In the meantime will go ahead and continue to treat her for her asthma symptoms. These seem to be stable at this time. 01/23/2025 the patient is here for pulmonary follow-up visit. Overall she is doing okay. She does have issues with her memory. Recently she moved to a smaller apartment where she is a little more manageable. She is doing well from an asthma standpoint. She has not been using the Breztri. Does not seem to need it as much. Will go ahead and deescalate her therapy to Symbicort. In the meantime the patient also has a rescue inhaler available. Regarding her CPAP. The CPAP therapy has been affecting beneficial. Although she does get a dry mouth. She did get CPAP tape although she is concerned about using it. I did encourage her to try to fullface mask that I had available to do that 1st. If she does not like the fullface mask that she can go back to the nasal mask with the CPAP tape. Just to make sure the CPAP tape is not to secure where she should be able to open up her mouth if she needs to. Today we did fill out her handicap placard form. The patient does use a walker and she is very limited with her activity. [facility] Medical History (Updated 11/04/23 @ 10:44 by Chan Oconnor MD) Dyspnea Systolic murmur Chronic restrictive lung disease ARIAN on CPAP Cough Asthma Social History Patient Tobacco Use Status: Former Tobacco user Tobacco use type: Cigarette Years Smoked: 10+ Years Review of Systems Const Denies night sweats and Reports weight loss ENT Denies change in voice, Denies lip swelling, Denies mouth pain, Reports nasal congestion, Reports nasal discharge, Denies nasal obstruction, Denies sinus pain, Denies sinus pressure and Denies tongue swelling Card Denies chest pain and Reports dyspnea on exertion Resp Denies change in phlegm color, Denies chest congestion, Reports cough and Reports dyspnea on exertion GI Denies abdominal pain Musc Denies no additional complaints Skin/Breast Reports as per HPI and Reports lesions Neuro Denies Neuro-related abnormal movements and Reports memory loss Psych Reports anxiety and Reports memory loss Ronald/Lymph Denies easy bleeding and Denies lymphadenopathy Aller/Immun Denies lip swelling and Denies tongue swelling Physical Exam Vital Signs: Last Vital Signs Pulse 86 01/23/25 09:06 BP 122/58 L 01/23/25 09:06 Pulse Ox 94 01/23/25 09:06 Oxygen Delivery Method Room Air 01/23/25 09:06 BMI result Body Mass Index 36.6 Const General: alert HEENT Head: Yes laceration (surgical site with some exudate on the forehead) Neck Neck: Yes normal visual inspection, Yes full ROM and Yes no lymphadenopathy Chest Chest palpation & inspection: normal inspection of the chest Resp Auscultation: no rales, no rhonchi, no wheezes and diminished lung sounds Cardio Rate: regular rate Rhythm: regular rhythm Heart sounds: S1 normal heart sound present, S2 normal heart sound present and Murmur heart sound present systolic mid, I/, at the base and at the left sternal border GI Palpation (GI): Soft to palpation and nontender Auscultation: normal bowel sounds Skin General skin exam: rashes and/or lesions noted Extrem General: No clubbing, No cyanosis and Yes edema Assessment & Plan Assessment & Plan (1) ARIAN on CPAP: Code(s): G47.33 - Obstructive sleep apnea (adult) (pediatric); Z99.89 - Dependence on other enabling machines and devices Category: Medical (2) Cough: Comment: likely related to her cough variant asthma Code(s): R05 - Cough Category: Medical Qualifiers: Cough type: chronic Qualified Code(s): R05.3 - Chronic cough (3) Asthma: Code(s): J45.909 - Unspecified asthma, uncomplicated Category: Medical Qualifiers: Asthma complication type: with acute exacerbation Asthma persistence: persistent Asthma severity: moderate Qualified Code(s): J45.41 - Moderate persistent asthma with (acute) exacerbation (4) Chronic restrictive lung disease: Code(s): J98.4 - Other disorders of lung Category: Medical (5) Dyspnea: Code(s): R06.00 - Dyspnea, unspecified Category: Medical Qualifiers: Dyspnea type: dyspnea on exertion Qualified Code(s): R06.09 - Other forms of dyspnea Plan stop Breztri start Symbicort ETHEL as needed continue APAP ramp 4, 6-14, mask N20 small JL->trial F20 airthough foam mask Trazodone for sleep continue Fluticasone nasal spray continue astelin Nasal spray weight management Follow-up in 8-10 months Medications: New budesonide-formoterol 160-4.5 mcg/actuation 2 puffs inhalation BID 10.2 grams 11RF 30 days J44.89 - Other specified chronic obstructive pulmonary disease Coding Level of Care Code Est Pt Level 4 (27025) Complex EM visit Add On G2211 Diagnoses ARIAN on CPAP G47.33; Z99.89 Chronic cough R05.3 Cough type: chronic Moderate persistent asthma with acute exacerbation J45.41 Asthma complication type: with acute exacerbation Asthma persistence: persistent Asthma severity: moderate Chronic restrictive lung disease J98.4 Dyspnea on exertion R06.09 Dyspnea type: dyspnea on exertion Time Spent (min) 17
--- OUTSIDE RECORDS SUMMARY | 2025-01-23 09:42 | XMS_ITS | Encounter Summary ---
Author Organization [facility] Address [address] [place] [address] Care Team Providers Care Hub Cutter Apprentice Name Role Phone Esperanza Coombs MD Primary Care Provider [phone] Encounter Details Date Type Department Care Team (Late st Contact Info) Description 06/11/2024 Lab Requisition [facility] - Main Lab [address] [facility] [place] [address] Damon aGrsia MD [address] [facility] [address] [place] [address] Malignant neoplasm of overlapping sites of bladder (CMS/HCC V24, CMS/HCC V28); Personal history of malignant neoplasm of bladder Social History Tobacco Use Types Packs/Day Years Used Date Smoking Tobacco: Former Cigarettes Smokeless Tobacco: Never Alcohol Use Standard Drinks/Week Comments Not Currently 0 (1 standard drink = 0.6 oz pur e alcohol) Housing Instability Answer Date Recorde d Are you worried that in the next 2 months you may not have stable housing? No 05/30/2024 Food Access & Nutrition Answer Date Rec orded Do you have access to a vari ety of food including fruits and vegetables? Yes 05/30/2024 Health Literacy Answer Date Recorded How often do you need to hav e someone help you when you read instructions, pamphlets, or other written material from your doctor or pharmacy? Never 05/30/2024 Caregiver: How often do you need to have someone help you when you read instructions, pamphlets, or other written material from your doctor or pharmacy? Not on file 05/30/2024 Financial Risk Answer Date Recorded How hard is it for you to pa y for the very basics like food, housing, medical care, and air conditioning / heating? Somewhat hard 05/30/2024 Transportation Answer Date Recorded Has the lack of transportati on kept you from meetings, work, or from getting things needed for daily living? No Has the lack of transportati on kept you from medical appointments or from getting medications? No 05/30/2024 Social Isolation Answer Date Recorded How often do you feel lonely or isolated from th ose around you? Rarely 05/30/2024 Food Risk Answer Date Recorded Within the past 12 months we worried whether our food would run out before we got money to buy more. Never true 05/30/2024 Within the past 12 months th e food we bought just didn't last and we didn't have money to get more. Never true 05/30/2024 Dependent Care Answer Date Recorded Do you need help finding or paying for care for your loved ones. For example, child guidance counselor or elderly care for an older adult? No 05/30/2024 Education Answer Date Recorded Do you think completing more education or training, like finishing a GED, going to college, or learning a trade, would be helpful for you? No 05/30/2024 Employment and Income Answer Date Recor ded During the last four weeks, have you been actively looking for work? No 05/30/2024 Living Situation Answer Date Recorded What is your living situation? 0 05/30/2024 Comments No Sex and Gender Information Value Date Recorded Sex Assigned at Not on file Legal Sex Female 3:25 PM EST Gender Identity Not on file Sexual Orientation Not on file documented as of this encounter Plan of Treatment Not on file documented as of this encounter Procedures Procedure Name Priority Date/Time Associated Diagnosis Comments AP OUTSIDE CONSULT Routine 06/05/2024 12 :00 AM EST Malignant neoplasm of overlapping sites of bladder (CMS/HCC) Personal history of malignant neoplasm of bladder documented in this encounter Results * Anatomic pathology outside consult (06/05/2024 12:00 AM EST) Final Diagnosis A. Urine,([id number]) : Negative for high grade urothelial carcinoma. Results of UroVysion fluorescence in situ hybridization (FISH) testing: CEP3: Normal CEP7: Normal CEP17: Normal LSI 9p21: Normal Interpretation: Normal profile Controls stained appropriately. Note: The results are intended as a screening device and should be interpreted in association with other clinical and pathological findings. 06/21/2024 4:31 PM [facility] Clinical Information C67.8 Malignant neoplasm of overlapping sites of bladder Z85.51 - Personal history of malignant neoplasm of bladder Urine Cytology/FISH (now) 06/21/2024 4:31 PM [facility] Gross Description A. Urine, Voided, ([id number]): Received is one ThinPrep slide for cytology screen and one ThinPrep slide for UroVysion FISH 06/21/2024 4:31 PM [facility] Disclaimer Technical pathology services provided by [facility] at [address] [place] [address] [address], [place] [address] (CLIA #[id number]/Gricel Day MD, Bond Analyst) Unless otherwise specified, all tissue is 10% NB formalin fixed and paraffin embedded. 06/21/2024 4:31 PM [facility] Tissue Urine specimen from urethra / Unknown 06/05/2024 06/11/2024 2:17 PM EST us Damon Garsia MD LAB PATHOLOGY ORDERABLES Final R esult [facility] [address] [place] [address], documented in this encounter Visit Diagnoses Diagnosis Malignant neoplasm of overlapping sites of bladder (CMS/HCC V24, CMS/HCC V28) Personal history of malignant neoplasm of bladder documented in this encounter Additional Health Concerns Assessment Noted Time PHQ-9 Depression Total Score: 0 05/30/19 4:25 PM EST documented as of this encounter Care Teams Hub Cutter Apprentice Relationship Specialty Start Date End Date Esperanza Coombs MD [address] [place] [address] PCP - General Internal Medicine 03/29/12 documented as of this encounter
--- OUTSIDE RECORDS SUMMARY | 2025-01-23 09:42 | XMS_ITS | Clinical Summary ---
Author Organization [facility] [address] [place] [address] [place] [phone] Phone Care Team Providers Care Comptometrist Name Role Phone Yolanda Coombs MD Primary Care Provider [phone] Allergies Active Allergy Reactions Criticality Noted Date Comments Doxycycline 04/24/2024 Sulfa (Sulfonamide Antibiotics) 10/01/2022 Other reaction(s): UNKNOWN- childhood [place] 04/24/2024 Medications hydrOXYzine HCL (ATARAX) 25 mg tabletIndicati ons:Vulvar itching TAKE 1 TABLET BY MOUTH AT BEDTIME NEEDED FOR ITCHING 90 tablet 3 4 Active aspirin 81 mg EC tablet Take 1 tablet (81 mg total) by mouth. Active atorvastatin (LIPITOR) 40 mg tablet Take 1 tablet (40 mg total) by mouth 1 (one) time each day. Active OneTouch Ultra Test test strip USE DIRECTED TO MONITOR GLUCOSE ONCE DAILY Active traZODone (DESYREL) 100 mg tablet Take 3 tablets (300 mg total) by mouth. Active Ozempic 2 mg/dose (8 mg/3 mL) injection pen INJECT 2 MG SUBCUTANEOUSLY EVERY 7 DAYS Active triazolam (HALCION) 0.25 mg tablet TAKE 1 AND 1/2 TABS BY MOUTH BEFORE BED Active omeprazole (PriLOSEC) [address] capsule Take 1 capsule (20 mg total) by mouth 1 (one) time each day. Active nystatin (MYCOSTATIN) 100,000 unit/gram powder APPLY TO AFFECTED AREA TWICE A DAY 30 g 5 Active mometasone (ELOCON) 0.1 % ointmentIndica tions:Atrophic vaginitis APPLY A THIN LAYER TO THE AFFECTED AREA NIGHTLY 45 g 1 5 Active nystatin (MYCOSTATIN) ointmentIndica tions:Atrophic vaginitis APPLY TO AFFECTED AREA EVERY MORNING 30 g 2 5 Active Active Problems Problem Noted Date Diagnosed Date Vulvar burning 05/31/2024 Assessment & Plan (05/31/2024 7:48 PM EST): Given no improvement and chronic disease, I recommended she have a biopsy. She agreed. Vulvar Biopsy Reason for biopsy: Encounter Diagnoses Name Primary? Lichen simplex chronicus Yes Lichen sclerosus of vulva Vulvar burning The patient was consented for vulvar biopsy. Risks reviewed including bleeding, infection, and hematoma formation. She was placed in dorsal lithotomy position. The area of planned biopsy was prepped with betadine and infiltrated with a total of 1 cc of 0.5% Marcaine. A 3 mm punch biopsy was taken and harvested with forceps and Iris scissors. Hemostasis was obtained with pressure and silver nitrate. Zinc oxide was applied. The patient tolerated the procedure well. Verbal and written instructions were provided. 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 Due to the severity, I recommend we treat for both. She will use Augmentin and fluconazole. She will continue warm compress and nystatin in AM and throughout the day. Bacterial skin infection 04/05/2023 Overview (04/24/2024): Last Assessment & Plan: Resolved. Would plan to try abx in the future if sx flare again as she has had resolution each time. Not clear the type. Will hopefully improve now over time given she is losing weight and sugars are better controlled. Bladder cancer ([facility] V24, [facility] V28) 2022 Compression fracture of spine ([facility] V24, [facility] V28) 02/08/2023 Diastolic dysfunction 02/08/2023 Hypertension 02/08/2023 Moderate persistent asthma without complication 02/08/2023 Overview (04/24/2024): [facility] pulmonary. Dr. Chan Oconnor Severe obesity ([facility] V24, [facility] V28) 2022 Cutaneous candidiasis 09/22/2021 Overview (04/24/2024): Last Assessment & Plan: Given poorly controlled DM and findings on exam, I have some concern that she has cutaneous yeast. Will treat with fluconazole. Lichen sclerosus of vulva 09/22/2021 Overview (04/24/2024): Overall well controlled now that superinfection resolved. Continue Assessment & Plan (05/31/2024 7:49 PM EST): Reviewed findings with patient. Suboptimally controlled. Will restart mometasone nightly and nystatin QAM. Assessment & Plan (04/24/2024 9:09 PM EST): Poorly controlled due to possible superinfection with yeast and or bacteria. Will treat for both with oral fluconazole and augmentin, respectively. Will switch from clobetasol to mometasone nightly and nystatin morning and mid day. Lichen simplex chronicus 09/22/2021 Overview (04/24/2024): Last Assessment & Plan: Improved. Continue as noted above. Hydroxyzine prn. Asthma 07/20/2017 Obstructive sleep apnea syndrome 07/20/2017 Overview (04/24/2024): [facility] pulmonary. Dr. Chan Oconnor [facility] pulmonary. Dr. Chan Oconnor Tracheomalacia 07/20/2017 Vocal cord dysfunction 07/20/2017 Depression 04/24/2017 Diabetes mellitus type 2, un complicated ([facility] V24, [facility] V28) 04/24/2017 Overview (04/24/2024): Last Assessment & Plan: I again discussed with Le that control of her sugars is paramount to her ability to keep her skin healthy. She is likely to continue requiring treatment for flares if her sugars remain high. She voiced understanding and plans to work on it. Hyperlipidemia 04/24/2017 Encounters Date Type Department Care Team Description 12/24/2024 Lab Requisition [facility] - Main Lab [address] [facility] [place] [address] Damon Garsia MD Malignant neoplasm of overlapping sites of bladder ([facility] V24, [facility] V28) from Last 3 Months Medical History Medical History Date Comments COPD (chronic obstructive pu lmonary disease) ([facility] V24, [facility] V28) 04/24/2017 DX:COPD (chronic o bstructive pulmonary disease) ([facility]) Hyperlipidemia 04/24/2017 DX:Hyperlipidemi a Anxiety 04/24/2017 DX:Anxiety Depression 04/24/2017 DX:Depression Diabetes mellitus type 2, uncomplicated ([facility] V24, [facility] V28) 04/24/2017 DX:Diabetes mellitus type 2, uncomplicated ([facility]) Asthma 07/20/2017 DX:Asthma ARIAN (obstructive sleep apnea) 07/20/2017 DX :ARIAN (obstructive sleep apnea) Vocal cord dysfunction 07/20/2017 DX:Vocal cord dysfunction Tracheomalacia 07/20/2017 DX:Tracheomalaci a Social History Tobacco Use Types Packs/Day Years [...] for your loved ones. For example, child welfare director or elderly care for an older adult? [...] on file Sexual Orientation Not on file Obstetrics History Para Term AB IAB SAB Ectopic Multiple Livin g Live Births 2 2 Date Outcome GA Total Labor Labor/2nd/3rd Weight Sex Type Anes PTL Catherine A1 A5 Name Clin Last Filed Vital Signs Vital Sign Reading Time Taken Comments Blood Pressure 124/74 04/24/2024 12:32 PM EST Pulse 68 04/24/2024 12:32 PM EST Temperature - - Respiratory Rate 16 04/24/2024 12:32 PM EST Oxygen Saturation - - Inhaled Oxygen Concentration - - Weight 106 kg (233 lb 12.8 oz) 04/24/2024 12:32 PM EST Height 162.6 cm (5' 4 ) 04/24/2024 12:32 PM EST Body Mass Index 40.13 04/24/2024 12:32 PM EST Plan of Treatment Health Maintenance Due Date Last Done Comments Diabetes: Annual GFR (Glomerular Filtration Rate) 1945 Diabetes: Annual Foot Exam 08/21/1955 Diabetes: Annual Retina Eye Exam 08/21/1955 Zoster Vaccines (1 of 2) 07/19/2013 05/24/2013 Cholesterol Screening (Lipid Panel) 05/01/2022 Falls Risk Assessment 05/01/2022 Hepatitis C Screening 05/01/2022 Medicare Annual Wellness Visit 05/01/2022 Osteoporosis Screening (Bone Density Screening) 05/01/2022 Diabetes: Blood Sugar Control Test (HGBA1C) 05/06/2022 Diabetes: Annual Urine Albumin-Creatinine Ratio (uACR) 02/09/2024 02/08/2023 Hypertension/CHF/CAD Annual BMP Blood Test 04/24/2024 COVID-19 Vaccine (7 - Moderna risk season) 2024 05/03/2024, 04/29/2023, 09/15/2021, Additional history exists Influenza Vaccine (#1) 2025 , 03/05/2022, 03/12/2020, Additional history exists Social Influencers of Health Screening 05/30/2025 05/30/2024 DTaP,Tdap,and Td Vaccines (2 - Td or Tdap) 11/25/2026 11/25/2016 Pneumococcal Vaccine: 50+ Years Completed 04/25/2017, 04/19/2016 RSV Immunization Adult Patients Completed 04/29/2023 Depression Screening Completed 05/30/2024 HIB Vaccines Aged Out No longer eligi ble based on patient's age to complete this topic HPV Vaccines Aged Out No longer eligi ble based on patient's age to complete this topic Hepatitis A Vaccines Aged Out No long er eligible based on patient's age to complete this topic Hepatitis B Vaccines Aged Out No long er eligible based on patient's age to complete this topic IPV Vaccines Aged Out No longer eligi ble based on patient's age to complete this topic MMR Vaccines Aged Out No longer eligi ble based on patient's age to complete this topic Meningococcal ACWY Vaccine Aged Out N o longer eligible based on patient's age to complete this topic Meningococcal B Vaccine Aged Out No l onger eligible based on patient's age to complete this topic RSV Immunization Patients Under 20 months Aged Out No longer eligible based on patient's age to complete this topic Varicella Vaccines Aged Out No longer eligible based on patient's age to complete this topic Procedures Procedure Name Priority Date/Time Associated Diagnosis Comments NON-GYNECOLOGIC CYTOLOGY Routine 12/18/2024 12:00 AM EDT Malignant neoplasm of overlapping sites of bladder ([facility] V24, [facility] V28) from Last 3 Months Results * Non-gynecologic cytology (12/18/2024 12:00 AM EDT) Final Diagnosis Cystoscopic urine, [id number]: Negative for high grade urothelial carcinoma. Results of UroVysion fluorescence in situ hybridization (FISH) testing: CEP3: Normal CEP7: Normal CEP17: Normal LSI 9p21: Normal Interpretation: Normal profile Controls stained appropriately. Note: The results are intended as a screening device and should be interpreted in association with other clinical and pathological findings. 01/07/2025 9:23 AM EDT [facility] Specimen A Adequacy Satisfactory for evaluation 01/07/2025 9:23 AM EDT [facility] Clinical Information Malignant neoplasm of overlapping sites of bladder C67.8 Urine Cytology/FISH (now) 01/07/2025 9:23 AM EDT [facility] Gross Description A. Cystoscopic, [id number]: Received one ThinPrep slide for cytology and one ThinPrep slide for UroVysion FISH 01/07/2025 9:[address] [facility] Disclaimer Unless otherwise specified, all tissue is 10% NB formalin fixed and paraffin embedded. Technical pathology services provided by [facility] at [address], [place] [address] (CLIA #[id number]/Gricel Day MD, Dye Worker) 01/07/2025 9:[address] [facility] Urine Cystoscope / Unknown 12/18/2024 12/24/2024 1:20 PM EDT us Damon Garsia MD LAB CYTOLOGY ORDERABLES Final Re sult [facility]) [facility] [address] [place] [address], [place] [phone] from Last 3 Months Insurance MEDICARE [facility] Care Teams Comptometrist Relationship Specialty Start Date End Date Yolanda Coombs MD [address] [place] [address] (work) PCP - General Internal Medicine 03/29/12
--- OUTSIDE RECORDS SUMMARY | 2025-01-23 09:42 | XMS_ITS | Encounter Summary ---
Author Organization [facility] Address [address] [place] [address] Care Team Providers Care Mill Roll Rewinder Name Role Phone Esperanza Coombs MD Primary Care Provider Encounter Details Date Type Department Care Team (Late st Contact Info) Description 12/24/2024 Lab Requisition [facility] - Main Lab [address] [facility] [place] [address] Damon Garsia MD [address] [facility] [address] [place] [address] Malignant neoplasm of overlapping sites of bladder ([facility]/HCC V24, [facility]/HCC V28) Social History Tobacco Use Types Packs/Day Years [...] care for your loved ones. For example, residential child care counselor or elderly care for an older [...] Malignant neoplasm of overlapping sites of bladder ([facility] V24, [facility] V28) documented in this encounter Results * Non-gynecologic cytology (12/18/2024 12:00 AM EDT) Final Diagnosis Cystoscopic urine, [id number]: Negative for high grade urothelial carcinoma. Results of UroVysion fluorescence in situ hybridization (FISH) testing: CEP3: Normal CEP7: Normal CEP17: Normal LSI 9p21: Normal Interpretation: Normal profile Controls stained appropriately. Note: The results are intended as a screening device and should be interpreted in association with other clinical and pathological findings. 01/07/2025 9:23 AM EDT [facility] Specimen A Adequacy Satisfactory for evaluation 01/07/2025 9:23 AM EDT [facility] Clinical Information Malignant neoplasm of overlapping sites of bladder C67.8 Urine Cytology/FISH (now) 01/07/2025 9:23 AM EDT [facility] Gross Description A. Cystoscopic, [id number]: Received one ThinPrep slide for cytology and one ThinPrep slide for UroVysion FISH 01/07/2025 9:23 AM [facility] Disclaimer Unless otherwise specified, all tissue is 10% NB formalin fixed and paraffin embedded. Technical pathology services provided by [facility] at [address] [facility] [address], [place] [address] (CLIA #[id number]/Gricel Day MD, Multimedia Artist) 01/07/2025 9:23 AM T [facility] Urine Cystoscope / Unknown 12/18/2024 12/24/2024 1:20 PM EDT us Damon Garsia MD LAB CYTOLOGY ORDERABLES Final Re sult [facility] [address] [place] [address], documented in this encounter Visit Diagnoses Diagnosis Malignant neoplasm of overlapping sites of bladder (CMS/HCC V24, CMS/HCC V28) documented in this encounter Additional Health Concerns Assessment Noted Time PHQ-9 Depression Total Score: 0 05/30/19 25 4:25 PM EST documented as of this encounter Care Teams Mill Roll Rewinder Relationship Specialty Start Date End Date Esperanza Coombs MD [address] [place] [address] PCP - General Internal Medicine 03/29/12 documented as of this encounter
--- OUTSIDE RECORDS SUMMARY | 2025-01-23 09:42 | XMS_ITS | Clinical Summary ---
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 08/27/19 23 Active TIADYLT ER 180 mg 24 hr capsule Take 180 mg by mouth nightly at bedtime. 09/04/19 23 Active escitalopram oxalate (LEXAPRO) 20 MG tablet take 1 tablet by mouth everyday at bedtime 08/19/19 23 Active losartan (COZAAR) 100 MG tablet Take 1 tablet by mouth every morning. 07/26/19 23 Active nystatin ointment Apply 1 Application topically every morning. To vulva and perianal areas as needed 08/27/19 23 Active omeprazole (PRILOSEC) 20 MG capsule Take 1 capsule by mouth every morning. 07/01/19 23 Active traZODone (DESYREL) 100 MG tablet Take 200 mg by mouth nightly at bedtime. 09/14/19 23 Active triazolam (HALCION) 0.25 MG tablet Take 1 tablet by mouth nightly at bedtime. 07/01/19 23 Active acetaminophen (TYLENOL) 500 MG tablet Take 1,000 mg by mouth 2 (two) times a day as needed. Active albuterol 90 mcg/actuation inhaler albuterol sulfate HFA 90 mcg/actuation aerosol inhaler 2 PUFF INHALED EVERY 4 HOURS NEEDED FOR FOR WHEEZING Active aspirin 81 mg chewable tablet Take 81 mg by mouth daily. 08/26/19 22 Active buPROPion (WELLBUTRIN SR) 100 MG SR 12 hr tablet Take 150 mg by mouth daily. Active cholecalciferol (VITAMIN D3) 5,000 unit tablet Take 5,000 Units by mouth daily. Active hydrOXYzine HCL (ATARAX) 10 MG tablet hydroxyzine HCl 10 mg tablet TAKE 1 TABLET BY MOUTH AT BEDTIME NEEDED FOR ITCHING Active lancets 30 gauge Misc 1 each by Miscellaneous route every morning. Active furosemide (LASIX) 20 MG tablet Take 20 mg by mouth daily. Active nystatin (NYSTOP) powder Apply 1 Application topically daily as needed. 05/04/20 23 Active cyanocobalamin, vitamin B-12, 1000 MCG tablet Take 1,000 mcg by mouth daily. Active ONETOUCH ULTRA TEST Strp stripsIndication s:Type 2 diabetes mellitus with peripheral neuropathy Use as directed to monitor glucose once daily 100 strip 3 08/09/19 24 Active OZEMPIC 2 mg/dose (8 mg/3 mL) subcutaneous injection penIndications:T ype 2 diabetes mellitus with peripheral neuropathy INJECT 2 MG INTO THE SKIN EVERY 7 DAYS 3 mL 4 09/25/19 25 Active mometasone (ELOCON) 0.1 % ointment APPLY A THIN LAYER TO THE AFFECTED AREA NIGHTLY 10/24/19 25 Active Active Problems Problem Noted Date Diagnosed Date Urinary frequency 11/07/2023 Assessment & Plan (11/07/2023 1:44 PM EDT): She has been having urinary frequency for the last several days, will order a UA to rule out a UTI. Will send results to PCP for management Anxiety and depression 02/08/2023 Bladder cancer 02/08/2023 02/08/2023 Compression fracture of spine 02/08/2023 Diastolic dysfunction 02/08/2023 02/08/2023 High cholesterol 02/08/2023 02/08/2023 Hypertension 02/08/2023 02/08/2023 Assessment & Plan (11/05/2024 1:47 PM EDT): Managed by PCP. Appears to be well controlled. Assessment & Plan (08/09/2023 11:30 AM EDT): Managed by PCP. Appears to be well controlled. Moderate persistent asthma without complication 02/08/2023 02/08/2023 Overview (02/08/2023): [facility] [place] pulmonary. Dr. Chan Oconnor Severe obesity 02/08/2023 02/08/2023 Obstructive sleep apnea syndrome 02/08/2023 02/08/2023 Overview (02/08/2023): [facility] [place] pulmonary. Dr. Chan Oconnor Type 2 diabetes mellitus with peripheral neuropa thy Assessment & Plan (11/05/2024 1:47 PM EDT): Control has been good based on prior HbA1c. Losing weight on maximum dose of ozempic. Continue to work on eating healthy & keeping active, as able. To call or send in BG with problems with glycemic control. Will do labs today. To call if hasn't heard from us within 1-2 weeks. Up to date with [employer]. Assessment & Plan (05/07/2024 1:32 PM EST): Control is good based upon the patient's recall of her SMBG readings. She is not using any medications to cause hypoglycemia. Will maintain her ozempic dosing. Continue to work on eating healthy and being active. To call or message with any issues managing her glucose levels. Up to date with [employer]. Foot and nail care is good. Labs ordered Assessment & Plan (11/07/2023 1:55 PM EDT): Control is good based upon the patient's SMBG readings. She is not using any medications to cause hypoglycemia. Her glucose levels are slightly higher than where they were with the use of mounjaro, will increase her dose of ozempic to see if this helps lower her glucose levels further. Continue to work on eating healthy and being active. To call or message with any issues managing her glucose levels. Up to date with [employer]. Labs ordered today Assessment & Plan (08/09/2023 11:31 AM EDT): Control has been good on HbA1c. SMBG readings are not doing as well. She is under a lot of stress & is not sleeping & eating overnight. Will check labs today. Will increase mounjaro from 5 mg to 7.5 mg. Continue to work on eating healthy & keeping active. To call or send in BG with problems with glycemic control. Will do labs today. To call if hasn't heard from us within 1-2 weeks. Up to date with [facility]. Umalb/creat up to date, normal. Assessment & Plan (05/10/2023 2:55 PM EST): Control is good based upon the patient's last A1C of 6.0%. She is not using any medications to cause hypoglycemia. She wanted to switch her trulicity to mounjaro as she feels she will have a better response to it. She stopped taking metformin due to the severe diarrhea she was having with it. She has 2 doses left of the trulicity, will finish these and then start the mounjaro. Continue to work on eating healthy and being active. To call or message with any issues managing her glucose levels. Up to date with [facility]. Labs ordered today Assessment & Plan (02/08/2023 4:35 PM EDT): Control unknown as no recent labs or SMBG readings. Having some diarrhea with low dose metformin which is probably not contributing much to her glycemic control at 500 mg daily. Will d/c that. If control sub-optimal on labs, will plan on increasing trulicity to 3 mg & potentially considering a different 2nd agent if HbA1c is particularly elevated. Continue to work on eating healthy & keeping active. To call or send in BG with problems with glycemic control. Will do labs today. To call if hasn't heard from us within 1-2 weeks. Up to date with [employer]. Foot & nail care good. BP under reasonable control. Assessment & Plan (10/01/2022 11:40 AM EDT): Control is unknown as the patient has not been checking her glucose levels since being home from the hospital. She is not using any medications to cause hypoglycemia. She needs a prescription for testing supplies as she is having issues with hers. Will send a new prescription for one touch supplies to her pharmacy. Told her to start checking her glucose levels again and to call the office if her fasting levels are consistently over 250. Will start a short course of basal insulin to help improve her control while on the steroids. Showed her how to use the insulin pens to give if needed. She demonstrated good understanding via teach back. Will send in a new prescription for her sachi. Continue to work on eating healthy and being active. Up to date with [facility]. Labs ordered to do prior to next visit Long-term current use of inj ectable noninsulin antidiabetic medication Assessment & Plan (05/07/2024 1:33 PM EST): Will send her ozempic prescription to [facility] as [facility] has not been able to get it for her. If she cannot get it from [facility] she will reach out to the office to have it sent to [facility] Resolved Problems Problem Noted Date Diagnosed Date Resolved Date alf current use of ora l hypoglycemic drug 11/05/2024 Encounters Date Type Department Care Team Description 11/06/2024 Orders Only [facility] [place] [address] [place] [phone] Bisi Ramon MD Type 2 diabetes mellitus with peripheral neuropathy (Primary Dx) 11/05/2024 1:33 PM EDT - 11/05/2024 11:59 PM EDT Hospital Encounter [facility] [address] [facility] [place] [address] Bisi Ramon MD Discharge Disposition: Home or Self Care 11/05/2024 1:00 PM EDT Office Visit [facility] [place] [address] [facility] [place] [phone] Bisi Ramon MD Type 2 diabetes mellitus with peripheral neuropathy (Primary Dx); Long-term current use of injectable noninsulin antidiabetic medication; Primary hypertension 11/05/2024 Orders Only [facility] [address] [place] [address] Provider, MD Jese from Last 3 Months Immunizations Immunization Administration Dates Next Due COVID-19 (Pre-03/14) Moderna Vaccine, mRNA, PF 09/15/2021,04/22/2021,07/25/2020,06/29,06/27/2020 INFLUENZA, SPLIT VIRUS, TRIV ALENT W/ PRESERVATIVE IM 03/05/2022,03/12/2020 Pneumococcal conjugate PCV13 04/19/2016 Pneumococcal polysaccharide PPSV23 04/25/2017 Td, unspecified formulation 11/25/2016 Zoster live 05/24/2013 Family History Medical History Relation Comments Kidney cancer Brother Heart failure Father Stroke Father Idiopathic pulmonary fibrosis Sister 1 Pulmonary fibrosis Sister 1 Atrial fibrillation Sister 2 Heart failure Sister 2 Pulmonary Hypertension Sister 2 Relation Status Comments Brother Alive Father Mother Sister 1 (Age 76) on d/t Pulmonary Fibrosis Sister 2 Alive Social History Tobacco Use Types Packs/Day Years Used Date Smoking Tobacco: Former Cigarettes 1.5 40 1 963 - 2002 Smokeless Tobacco: Never Alcohol Use Standard Drinks/Week Comments Not Currently 0 (1 standard drink = 0.6 oz pure alcohol) no alcohol for 43 years-noted 2022 Education Answer Date Recorded Are you interested in more education? Not on yuri e 09/30/2022 Are you concerned about learning? Not on file 09/30/2022 No 09/30/2022 No 09/30/2022 Digital Access Answer Date Recorded No 10/16/2022 No 10/16/2022 Reliable internet access at home? Not on file 10/16/2022 Device with a working camera? Not on file Comments Unknown Sex and Gender Information Value Date Recorded Sex Assigned at Not on file Legal Sex Female 9:17 AM EDT Gender Identity Not on file Sexual Orientation Not on file Last Filed Vital Signs Vital Sign Reading Time Taken Comments Blood Pressure 120/70 11/05/2024 1:02 PM EDT Pulse 81 11/05/2024 1:02 PM EDT Temperature 36.3 C (97.3 F) 05/07/2024 12:54 PM EST Respiratory Rate 16 05/07/2024 12:54 PM EST Oxygen Saturation 96% 11/05/2024 1:02 PM EDT Inhaled Oxygen Concentration - - Weight 98.4 kg (217 lb) 11/05/2024 1:02 PM EDT Height 163.8 cm (5' 4.49 ) 11/05/2024 1:02 PM ED T Body Mass Index 36.69 11/05/2024 1:02 PM EDT Plan of Treatment Upcoming Encounters Date Type Department Care Team (Late st Contact Info) Description 05/20/2025 12:30 PM EST Office Visit [facility]in[facility] [address] [phone] Ivis Gruber PA-C [address] [place] [phone] [email or web address] 11/11/2025 2:00 PM EDT Office Visit [facility] [address] [phone] Bisi Ramon MD [address] [place] [phone] [email or web address] Health Maintenance Due Date Last Done Comments DEPRESSION SCREENING 1957 HEPATITIS C SCREENING 08/21/1963 OSTEOPOROSIS SCREENING INITIAL (ONE-TIME) 2010 ZOSTER VACCINES (1 of 2) 07/19/2013 05/24/2013 RSV VACCINE (1 - 1-dose 75+ series) 2020 DIABETIC EYE EXAM 10/01/2022 COVID-19 VACCINE ( season) 2024 09/15/2021, 04/22/2021, 07/25/2020, Additional history exists BLOOD PRESSURE 05/07/2025 11/05/2024 HEMOGLOBIN A1C 05/07/2025 11/05/2024, 04/22, 11/07/2023, Additional history exists CREATININE LEVEL 11/05/2025 11/05/2024, 04/2025, 05/07/2024, Additional history exists POTASSIUM LEVEL 11/05/2025 11/05/2024, 03/06/2024, 05/07/2024, Additional history exists Adult Td,Tdap Booster 11/25/2026 11/25/2016 PNEUMOCOCCAL VACCINES (50+ years) Completed 04/25/2017, 04/19/2016 SMOKING STATUS SCREENING (Once After 26 Yrs) Completed 05/07/2024 HEPATITIS A VACCINES Aged Out No long er eligible based on patient's age to complete this topic HIB VACCINES Aged Out No longer eligi ble based on patient's age to complete this topic MENINGOCOCCAL VACCINES (ACWY) Aged Out No longer eligible based on patient's age to complete this topic MENINGOCOCCAL VACCINES (B) Aged Out N o longer eligible based on patient's age to complete this topic Medical Devices Not on file Procedures Procedure Name Priority Date/Time Associated Diagnosis Comments MICROALBUMIN/CREATININE RATIO, RANDOM URINE Routine 11/05/2024 1:45 PM EDT Type 2 diabetes mellitus with peripheral neuropathy HEMOGLOBIN A1C Routine 11/05/2024 1:34 PM EDT Type 2 diabetes mellitus with peripheral neuropathy ASPARTATE AMINOTRANSFERASE (AST) Routine 11/05/2024 1:34 PM EDT Type 2 diabetes mellitus with peripheral neuropathy ALANINE AMINOTRANSFERASE (ALT) Routine 11/05/2024 1:34 PM EDT Type 2 diabetes mellitus with peripheral neuropathy BASIC METABOLIC PANEL Routine 11/05/2024 1:34 PM EDT Type 2 diabetes mellitus with peripheral neuropathy from Last 3 Months Results * (ABNORMAL) Microalbumin/creatinine ratio, random urine (11/05/2024 1:45 PM EDT) URINE MICROALBUMIN 5.1(H) 0 - 2.3 mg/dL [facility] URINE CREATININE 42 mg/dL [facility] MICROALB/CRE RATIO 121.4(H) 0 - 20 mg/g Cre [facility] Urine (Urine) 11/05/2024 1:4 5 PM EDT 11/05/2024 1:46 PM EDT Result Garrett Ramon MD URINE ORDERABLES Final Result Performing Organization Address City/[facility]/ZIP Co de Phone Number [address] [address] * Alanine aminotransferase (ALT) (11/05/2024 1:34 PM EDT) ALT 10 0 - 40 U/L [facility] Blood 11/05/2024 1:34 PM EDT 11/05/2024 1:41 PM EDT us Bisi Ramon MD LAB BLOOD ORDERABLES F inal Result Performing Organization Address [facility]/ZIP Co de Phone Number [address] [address] * Aspartate aminotransferase (AST) (11/05/2024 1:34 PM EDT) AST 23 0 - 37 U/L [facility] Blood 11/05/2024 1:34 PM EDT 11/05/2024 1:41 PM EDT Result Garrett Ramon MD LAB BLOOD ORDERABLES F inal Result Performing Organization Address City/[facility]/ZIP Co de Phone Number [address] [address] * Hemoglobin A1c (11/05/2024 1:34 PM EDT) HEMOGLOBIN A1C 5.7 4.3 - 5.8 % [facility] Blood 11/05/2024 1:34 PM EDT 11/05/2024 1:41 PM EDT us Bisi Ramon MD LAB BLOOD ORDERABLES F inal Result Performing Organization Address City/[facility]/ZIP Co de Phone Number [address] [address] * (ABNORMAL) Basic metabolic panel (11/05/2024 1:34 PM EDT) SODIUM 134 133 - 146 mmol/L [facility] CHLORIDE 103 96 - 108 mmol/L [facility] POTASSIUM 4.1 3.3 - 5.1 mmol/L [facility] CO2 23 21 - 35 mmol/L [facility] BUN 14 6 - 19 mg/dL [facility] CREATININE 1.00 0.5 - 1.5 mg/dL [facility] GLUCOSE 106(H) 70 - 99 mg/dL [facility] CALCIUM 9.8 8.4 - 10.3 mg/dL [facility] EGFR 57(L) >59 mL/min/1.7 3m2 [facility] Comment:Estimated glomerular filtration rate calculated using the CKD-EPI refit equation. ANION GAP 12 10 - 20 mmol/L [facility] Blood 11/05/2024 1:34 PM EDT 11/05/2024 1:41 PM EDT us Bisi Ramon MD LAB BLOOD ORDERABLES F inal Result [facility] [address] [place] [address] from Last 3 Months Insurance MEDICARE PART A & B [facility] EXTENSION MEDICARE SUPPLEMENT MEDICARE PART A & B [facility] MEDICARE SUPPLEMENT MEDICARE PART A & B Member Subscriber Plan / Payer ( fective 2010-Present) Name:Esperanza Trujillo Member ID:[id number] Relation to Subscriber:Self Name:Esperanza Trujillo Subscriber ID:[id number] Payer ID:[id number] Group ID:Not on file Type:Medicare Address: [employer] [address] [employer]TENSION MEDICARE SUPPLEMENT MEDICARE PART A & B MEDICARE SUPPLEMENT MEDICARE PART A & B Member Subscriber Plan / Payer (Ef fective 2010-Present) Name:Esperanza Trujillo Member ID:[id number] Relation to Subscriber:Self Name:Esperanza Trujillo Subscriber ID:[id number] Payer ID:[id number] Group ID:Not on file Type:Medicare Address: [employer] 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 It is not the complete legal health record.[facility]
== END 2025-01-23 09:32 | disposition home or self-care (01) ==
LOC: HO.HPS 09:02
PROVIDERS: PCP Nurse Practitioner Gerontology; Visit Provider Hospitalist
DX: G47.33 Obstructive sleep apnea (adult) (pediatric) (principal); Z99.89 Dependence on other enabling machines and devices; R05.3 Chronic cough; J45.41 Moderate persistent asthma with (acute) exacerbation; J98.4 Other disorders of lung; R06.09 Other forms of dyspnea
CPT/HCPCS: 99214; G2211

== ENCOUNTER → 2025-01-23 09:01 | Outpatient (BNVA) | payer MEDICARE, OTHER, SELFPAY | PROVIDERS: PCP Nurse Practitioner Gerontology; Visit Provider Hospitalist | DX: G47.33 Obstructive sleep apnea (adult) (pediatric) (principal); Z99.89 Dependence on other enabling machines and devices; R05.3 Chronic cough; J45.41 Moderate persistent asthma with (acute) exacerbation; J98.4 Other disorders of lung; R06.09 Other forms of dyspnea; Z87.891 Personal history of nicotine dependence | CPT/HCPCS: 99212 ==